=== PATIENT | male | born 1940 | race Hispanic/Latino ===

== ENCOUNTER 2017-10-03 00:08 | Observation (INO) | payer MEDICARE, BC ==
[2017-10-03] MEDS ORDERED: Nitroglycerin 2% Ointment Foilpak UD TOP STA (01:32)
[2017-10-03 01:37] LABS: BASO % 0.7 % (0.0-2.0); EOS # 0.1 K/uL (0.0-0.7); EOS % 1.9 % (0.0-4.0); HEMOGLOBIN 14.4 g/dL (12.0-18.0); LYMPH # 1.5 K/uL (1.0-4.3); LYMPH % 21.9 % (20.0-40.0); MEAN CELL VOLUME 87.8 fl (80.0-94.0); MEAN CORPUSCULAR HEMOGLOBIN 29.9 pg (27.0-31.0); MEAN CORPUSCULAR HGB CONC 34.1 g/dL (33.0-37.0); MEAN PLATELET VOLUME 9.2 fl (7.2-11.7); MONO # 0.5 K/uL (0.0-0.8); MONO % 6.8 % (0.0-10.0); NEUT # 4.6 K/uL (1.8-7.0); NEUT % 68.7 % (50.0-75.0); NRBC % 0.1 % (0.0-0.0); RBC 4.79 Mil/uL (4.40-5.90); RED CELL DISTRIBUTION WIDTH 14.3 % (11.5-14.5); WHITE BLOOD COUNT 6.7 K/uL (4.8-10.8)
[2017-10-03 01:42] LABS: BLOOD UREA NITROGEN 25 mg/dl (9-20); CALCIUM 9.2 mg/dL (8.4-10.2); GFR AFRICAN-AMERICAN > 60; GFR NON-AFRICAN AMERICAN > 60
[2017-10-03 01:52] LABS: PROTHROMBIN TIME 11.6 Seconds (9.8-13.1)
[2017-10-03 01:53] LABS: B-TYPE NATRIURETIC PEPTIDE 507 pg/ml (0-900)
--- NOTE | 2017-10-03 01:56 | ED PDOC ---
HPI: Chest Pain Time Seen by Provider: 10/03/17 00:45 Chief Complaint (Nursing): Chest Pain Chief Complaint (Provider): Chest Pain History Per: Patient History/Exam Limitations: no limitations Onset/Duration Of Symptoms: Hrs (x2), Sudden Onset Current Symptoms Are (Timing): Gone Now Associated Symptoms: denies: Nausea, Dyspnea, Diaphoresis Nitro Therapy Administered: 1, Per ED Additional Complaint(s): 76 year old male presents to ED with complaints of acute onset chest pain and has a past medical history of CAD, dyslipidemia, HTN, and CABG. Patient notes chest pain occurred x2 hours ago and resolved within seconds. Patient is asymptomatic upon ED arrival. (-) nausea, vomiting, diaphoresis, or SOB. PCP: Dr Parks - Risk Factors PE Risk Factors: Neg: Active Cancer, Previous DVT, Previous PE TAD Risk Factors: Pos: Hypertension Past Medical History Reviewed: Historical Data, Nursing Documentation, Vital Signs Vital Signs: Last Vital Signs Temp 98.6 F 10/03/17 13:52 Pulse 62 10/03/17 13:52 Resp 18 10/03/17 13:52 BP 138/94 H 10/03/17 13:52 Pulse Ox 98 10/03/17 13:52 - Medical History PMH: CAD, HTN, Hypercholesterolemia - Surgical History Surgical History: CABG (2008) - Family History Family History: States: Unknown Family Hx - Social History Current smoker - smoking cessation education provided: No Ex-Smoker (has not smoked in the last 12 months): No Alcohol: None Drugs: Denies - Home Medications Home Medications: Ambulatory Orders Medication Instructions Recorded Aspirin [Lo-Dose Aspirin EC] 81 mg PO DAILY 10/03/17 Atorvastatin [Lipitor] 40 mg PO DAILY 10/03/17 Carvedilol [Coreg] 6.25 mg PO BID 10/03/17 Furosemide [Lasix] 20 mg PO DAILY 10/03/17 Lisinopril [Zestril] 10 mg PO DAILY 10/03/17 - Allergies Allergies/Adverse Reactions: Allergies Allergy/AdvReac Type Severity Reaction Status Date / Time prochlorperazine Allergy VOMITING Verified 10/03/17 00:18 [From Compazine] PENNY Risk Score for UA/NSTEMI - PENNY Risk Score Age > 64: YES 3 or more CAD Risk Factors: YES Known CAD (Stenosis greater than 50%): YES PENNY Score: 3 Risk %: 13% Curb-65 Severity Score - CURB-65 Severity Score Confusion: No Respiratory Rate greater than/equal to 30: No Systolic BP <90 or Diastolic BP less than/equal 60mmHg: Yes Age >64: Yes Curb-65 Score: 2 Percentage 30-day mortality: 6.8% Wells Criteria for PE - Wells Criteria for Pulmonary Embolism Clinical Signs and Symptoms of DVT: No P.E is #1 Diagnosis, or Equally Likely: No Heart Rate >100: No Immobilization at least 3 days;Surgery previous 4 weeks: No Previous, objectively diagnosed PE or DVT: No Hemoptysis: No Malignancy w/treatment within 6 months, or palliative: No Total Score: 0 Review of Systems ROS Statement: Except As Marked, All Systems Reviewed And Found Negative Constitutional: Negative for: Sweats Cardiovascular: Positive for: Chest Pain (resolved) Respiratory: Negative for: Shortness of Breath Gastrointestinal: Negative for: Nausea, Vomiting Physical Exam - Reviewed Nursing Documentation Reviewed: Yes Vital Signs Reviewed: Yes - Physical Exam Appears: Positive for: Non-toxic, No Acute Distress Skin: Positive for: Normal Color, Warm, Dry Eye Exam: Positive for: Normal appearance Neck: Positive for: Normal Cardiovascular/Chest: Positive for: Regular Rate, Rhythm. Negative for: Murmur Respiratory: Positive for: Normal Breath Sounds. Negative for: Respiratory Distress Gastrointestinal/Abdominal: Positive for: Soft. Negative for: Tenderness Back: Positive for: Normal Inspection Extremity: Positive for: Normal ROM. Negative for: Deformity Neurologic/Psych: Positive for: Alert, Oriented. Negative for: Motor/Sensory Deficits - Laboratory Results Result Diagrams: 10/03/17 10:00 10/03/17 10:00 - ECG O2 Sat by Pulse Oximetry: 93 (RA) Pulse Ox Interpretation: Abnormal Medical Decision Making Medical Decision Makin Initial impression: chest pain in setting of CAD Initial plan: * EKG * Labs * Trop I * PTT/PT * CXR 0118 * OBS TELE ADMISSION (Dr. Howell) 0132 * ASA 324mg PO * Nitroglycerin 2% 1 ea TOP * Re-eval Labs reviewed show no clinically significant abnormalities. Patient will be hospitalized for further observation DX Chest Pain Fair Scribe Attestation: Documented by Irlanda Olivares acting as a scribe for Walt Ibrahim MD. MD Scribe Attestation: All medical record entries made by the Annie were at my direction and personally dictated by me. I have reviewed the chart and agree that the record accurately reflects my personal performance of the history, physical exam, medical decision making, and the department course for this patient. I have also personally directed, reviewed, and agree with the discharge instructions and disposition. Disposition - Clinical Impression Clinical Impression: Chest pain - Disposition Disposition Time: 01:00 Condition: FAIR - Pt Status Changed To: Hospital Disposition Of: Observation
[2017-10-03] MEDS ORDERED: Nitroglycerin 2% Ointment Foilpak UD TOP ONE ×2 (03:41→03:46)
[2017-10-03 08:09] VITALS: TEMP 98.6
[2017-10-03] MEDS ORDERED: Potassium Chloride 20 mEq ER Tab PO ONE (08:32)
--- NOTE | 2017-10-03 09:26 | RAD ---
HISTORY: chest pain COMPARISON: No prior. FINDINGS: LUNGS: No active pulmonary disease. PLEURA: Eventration of the right hemidiaphragm. No significant pleural effusion identified, no pneumothorax apparent. CARDIOVASCULAR: Prior sternotomy with sternal wires and surgical clips in place. Atherosclerotic aortic calcifications. Cardiomediastinal silhouette enlarged. OSSEOUS STRUCTURES: Degenerative changes. VISUALIZED UPPER ABDOMEN: Normal. OTHER FINDINGS: None. IMPRESSION: No active disease.
[2017-10-03 10:32] LABS: BASO % 0.7 % (0.0-2.0); EOS # 0.1 K/uL (0.0-0.7); EOS % 1.8 % (0.0-4.0); HEMOGLOBIN 15.2 g/dL (12.0-18.0); LYMPH # 0.9 K/uL (1.0-4.3); LYMPH % 18.3 % (20.0-40.0); MEAN CELL VOLUME 88.4 fl (80.0-94.0); MEAN CORPUSCULAR HEMOGLOBIN 29.6 pg (27.0-31.0); MEAN CORPUSCULAR HGB CONC 33.5 g/dL (33.0-37.0); MEAN PLATELET VOLUME 9.2 fl (7.2-11.7); MONO # 0.3 K/uL (0.0-0.8); MONO % 5.8 % (0.0-10.0); NEUT # 3.8 K/uL (1.8-7.0); NEUT % 73.4 % (50.0-75.0); NRBC % 0.3 % (0.0-0.0); RBC 5.14 Mil/uL (4.40-5.90); RED CELL DISTRIBUTION WIDTH 14.6 % (11.5-14.5); WHITE BLOOD COUNT 5.2 K/uL (4.8-10.8)
[2017-10-03 10:41] LABS: BLOOD UREA NITROGEN 24 mg/dl (9-20); CALCIUM 9.3 mg/dL (8.4-10.2); GFR AFRICAN-AMERICAN > 60; GFR NON-AFRICAN AMERICAN > 60
--- NOTE | 2017-10-03 12:26 | CP.PCM.HP ---
History of Present Illness - History of Present Illness History of Present Illness: 76 y/o M with PMhx of CAD, CABG, HTN presented to ED c/o CP. At the time of arrival CP was already resolved. Patient was admitted for CP to R/O ACS. Denies SOB, palpitations, headache or paresthesias. As per patient he was being compliant with meds and his meds are managed by his daughter which is a physician in [place]. Present on Admission - Present on Admission Any Indicators Present on Admission: Yes Review of Systems - Review of Systems All systems: reviewed and no additional remarkable complaints except - Cardiovascular Cardiovascular: Chest Pain Past Patient History - Past Social History Alcohol: None Drugs: Denies - CARDIAC Hx Hypercholesterolemia: Yes Hx Hypertension: Yes - PSYCHIATRIC Hx Substance Use: No - SURGICAL HISTORY Hx Coronary Artery Bypass Graft: Yes (2008) Meds Allergies/Adverse Reactions: Allergies Allergy/AdvReac Type Severity Reaction Status Date / Time prochlorperazine Allergy VOMITING Verified 10/03/17 00:18 [From Compazine] Physical Exam - Constitutional Appears: Non-toxic, No Acute Distress - Head Exam Head Exam: NORMAL INSPECTION - Eye Exam Eye Exam: EOMI, PERRL - ENT Exam ENT Exam: Mucous Membranes Moist - Respiratory Exam Respiratory Exam: Clear to Auscultation Bilateral, NORMAL BREATHING PATTERN. absent: Decreased Breath Sounds - Cardiovascular Exam Cardiovascular Exam: REGULAR RHYTHM, +S1, +S2. absent: Gallop - GI/Abdominal Exam GI & Abdominal Exam: Normal Bowel Sounds, Soft. absent: Tenderness - Neurological Exam Neurological exam: Alert, Normal Gait, Oriented x3 - Psychiatric Exam Psychiatric exam: Normal Affect, Normal Mood - Skin Skin Exam: Normal Color, Warm Results - Vital Signs Recent Vital Signs: Last Vital Signs Temp 98.6 F 10/03/17 08:08 Pulse 53 L 10/03/17 10:08 Resp 21 10/03/17 10:08 BP 133/79 10/03/17 10:08 Pulse Ox 97 10/03/17 10:08 - Labs Result Diagrams: 10/03/17 10:00 10/03/17 10:00 Labs: Laboratory Results - last 24 hr 10/03/17 10/03/17 10/03/17 01:26 01:26 01:26 WBC 6.7 RBC 4.79 Hgb 14.4 Hct 42.1 MCV 87.8 MCH 29.9 MCHC 34.1 RDW 14.3 Plt Count 176 MPV 9.2 Neut % (Auto) 68.7 Lymph % (Auto) 21.9 Lamar % (Auto) 6.8 Eos % (Auto) 1.9 Baso % (Auto) 0.7 Neut # (Auto) 4.6 Lymph # (Auto) 1.5 Lamar # (Auto) 0.5 Eos # (Auto) 0.1 Baso # (Auto) 0.0 PT 11.6 INR 1.0 APTT 30.0 Sodium 137 Potassium 3.2 L Chloride 97 L Carbon Dioxide 29 Anion Gap 14 BUN 25 H Creatinine 0.9 Est GFR ( Amer) > 60 Est GFR (Non-Af Amer) > 60 Random Glucose 168 H Calcium 9.2 Troponin I 0.0300 NT-Pro-B Natriuret Pep 507 10/03/17 10/03/17 10:00 10:00 WBC 5.2 RBC 5.14 Hgb 15.2 Hct 45.5 MCV 88.4 MCH 29.6 MCHC 33.5 RDW 14.6 H Plt Count 173 MPV 9.2 Neut % (Auto) 73.4 Lymph % (Auto) 18.3 L Lamar % (Auto) 5.8 Eos % (Auto) 1.8 Baso % (Auto) 0.7 Neut # (Auto) 3.8 Lymph # (Auto) 0.9 L Lamar # (Auto) 0.3 Eos # (Auto) 0.1 Baso # (Auto) 0.0 PT INR APTT Sodium 138 Potassium 3.8 Chloride 97 L Carbon Dioxide 31 H Anion Gap 14 BUN 24 H Creatinine 1.0 Est GFR ( Amer) > 60 Est GFR (Non-Af Amer) > 60 Random Glucose 163 H Calcium 9.3 Troponin I 0.0300 NT-Pro-B Natriuret Pep Assessment & Plan - Assessment and Plan (Free Text) Assessment: CP to rule out ACS CP Resolved VS stable Trops x1 normal EKG: Chronic ischemic changes Trops q8h repeat EKG Home meds reconciled Can be DC home if asymptomatic after 3rd trop negative
[2017-10-03 13:53] VITALS: BP 138/94; PULSE 62; RESP 18
--- NOTE | 2017-10-03 19:08 | CARD ---
APPROVED REPORT EKG Measurement Heart [id number] [place] 182P9 [id number] <Conclusion> Sinus bradycardia with premature atrial complexes Left ventricular hypertrophy with repolarization abnormality Inferior infarct, age undetermined Anterolateral infarct, age undetermined Abnormal ECG
[2017-10-04 03:49] VITALS: O2SAT 93
--- NOTE | 2017-10-04 23:50 | CARD ---
APPROVED REPORT EKG Measurement Heart [id number] <Conclusion> Sinus bradycardia with premature atrial complexes Inferior infarct, age undetermined Anteroseptal infarct, age undetermined T wave abnormality, consider lateral ischemia Abnormal ECG
== END 2017-10-03 15:31 | disposition home or self-care (01) ==
LOC: H.ER 00:08 → H.ERHOLD 01:18
PROVIDERS: ADMIT Family Medicine; ATTEND Family Medicine
DX: R07.9 Chest pain, unspecified (principal); I25.10 Atherosclerotic heart disease of native coronary artery without angina pectoris; I10 Essential (primary) hypertension; E78.5 Hyperlipidemia, unspecified; E78.00 Pure hypercholesterolemia, unspecified; Z95.1 Presence of aortocoronary bypass graft; Z79.82 Long term (current) use of aspirin
CPT/HCPCS: 71045; 80048; 83880; 84484; 85025; 85610; 85730; 93005; 99285; G0378

== ENCOUNTER 2018-02-18 06:27 | Emergency (ER) | payer OTHER, BC ==
[2018-02-18 07:06] VITALS: BP 137/65; TEMP 98.6; O2SAT 98
[2018-02-18] MEDS ORDERED: Iohexol 240 (50 ml) PO ONE (07:24)
[2018-02-18] MEDS ORDERED: Sodium Chloride 0.9% 1,000 ML IV STA (07:24)
[2018-02-18] MEDS ORDERED: Pantoprazole 40 MG in Sodium Chloride 0.9% 100 ML IVPB SCH (07:30)
--- NOTE | 2018-02-18 07:46 | ED PDOC ---
HPI: Abdomen Time Seen by Provider: 02/18/18 07:10 Chief Complaint (Nursing): Abdominal Pain Chief Complaint (Provider): Abdominal Pain and Black and Bloody Stools History Per: Patient History/Exam Limitations: no limitations Onset/Duration Of Symptoms: Days Outside of [place] travel?: No Current Symptoms Are (Timing): Still Present Severity: None Quality Of Discomfort: "Pain" Associated Symptoms: denies: Fever, Chills, Vomiting, Diarrhea, Chest Pain Exacerbating Factors: None Alleviating Factors: None Additional Complaint(s): 77 year old male with a past medical history of coronary artery disease, hypertension and hypercholesterolemia presents to the emergency department complaining of black and bloody stools associated with abdominal pain. Patient states that 3 months ago he had an episode of black stools which resolved spontaneously at that time but has been having intermittent episodes ever since. He reports that the most recent episodes of black stools occurred on Saturday and Saturday. Patient also notes some shortness of breath and weakness. Denies leg pain, dizziness, numbness/tingling, nausea, vomiting, diarrhea, chills. Chest pain yesterday, not today. PMD: Dr. Shreya Parks ([place]) Past Medical History Reviewed: Historical Data, Nursing Documentation, Vital Signs Vital Signs: Last Vital Signs Temp 98.6 F 02/18/18 07:00 Pulse 67 02/18/18 07:00 Resp 16 02/18/18 07:00 BP 137/65 02/18/18 07:00 Pulse Ox 98 02/18/18 07:54 - Medical History PMH: CAD, HTN, Hypercholesterolemia - Surgical History Surgical History: CABG (2008) - Family History Family History: States: Unknown Family Hx - Social History Current smoker - smoking cessation education provided: No Ex-Smoker (has not smoked in the last 12 months): No Alcohol: None Drugs: Denies - Home Medications Home Medications: Ambulatory Orders Medication Instructions Recorded Aspirin [Lo-Dose Aspirin EC] 81 mg PO DAILY 10/03/17 Atorvastatin [Lipitor] 40 mg PO DAILY 10/03/17 Carvedilol [Coreg] 6.25 mg PO BID 10/03/17 Furosemide [Lasix] 20 mg PO DAILY 10/03/17 Lisinopril [Zestril] 10 mg PO DAILY 10/03/17 - Allergies Allergies/Adverse Reactions: Allergies Allergy/AdvReac Type Severity Reaction Status Date / Time prochlorperazine Allergy VOMITING Verified 10/03/17 00:18 [From Compazine] Review of Systems ROS Statement: Except As Marked, All Systems Reviewed And Found Negative Constitutional: Positive for: Weakness. Negative for: Fever, Chills Cardiovascular: Positive for: Chest Pain Respiratory: Positive for: Shortness of Breath Gastrointestinal: Positive for: Abdominal Pain, Hematochezia, Other (Black and Bloody Stools). Negative for: Nausea, Vomiting, Diarrhea, Rectal Pain Neurological: Positive for: Weakness. Negative for: Numbness, Dizziness Physical Exam - Reviewed Nursing Documentation Reviewed: Yes Vital Signs Reviewed: Yes - Physical Exam Appears: Positive for: Non-toxic, No Acute Distress Head Exam: Positive for: ATRAUMATIC, NORMAL INSPECTION, NORMOCEPHALIC Skin: Positive for: Normal Color, Warm, Dry. Negative for: Rash Eye Exam: Positive for: Normal appearance, EOMI, PERRL. Negative for: Nystagmus ENT: Positive for: Normal ENT Inspection. Negative for: Nasal Congestion, Tonsillar Exudate, Tonsillar Swelling Neck: Positive for: Normal, Painless ROM, Supple Cardiovascular/Chest: Positive for: Regular Rate, Rhythm, Chest Non Tender. Negative for: Gallop, Murmur, Tachycardia Respiratory: Positive for: Normal Breath Sounds. Negative for: Rales, Rhonchi Gastrointestinal/Abdominal: Positive for: Bowel Sounds, Soft, Tenderness (mild diffuse tenderness). Negative for: Mass, Guarding, Rebound Rectal: Positive for: Normal Exam (No gross stool), Rectal Tone Is: (intact). Negative for: Hemorrhoids, Mass, Tenderness Extremity: Positive for: Normal ROM. 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 Negative for : Motor/Sensory Deficits - ECG O2 Sat by Pulse Oximetry: 98 (RA) Pulse Ox Interpretation: Normal - Progress ED Course And Treament: 806: Stable. AAOx3. Pt. refusing to stay in the hospital. Pope not want any work up done at this time. No labs, imaging, or admission. Will go AMA. He has capacity to make decisions. Aware of possible or decreased functioning from not getting evaluation and treatment for his chest pain, abd pain, gi bleeding. Medical Decision Making Medical Decision Makin Initial Impression: 77 year old male presenting with black bloody stools and abdominal pain Initial Plan: * ABO/RH Type * Type and Screen * CT ABD PELVIS PO & IV Contrast * EKG * CMP * Troponin * CBC * Partial Thrmboplastin * Prothrombin Time * CXR * NS 1000 ml IV 500 mls/hr * Iohexol 50 mL PO * Protonix inj 80 mg IVP * Occult Blood, Stool * Reevaluation Documented by Mallory Brito acting as a scribe for Calvin Chapman MD. All medical record entries made by the Scribe were at my direction and personally dictated by me. I have reviewed the chart and agree that the record accurately reflects my personal performance of the history, physical exam, medical decision making, and the department course for this patient. I have also personally directed, reviewed, and agree with the discharge instructions and disposition. Disposition - Clinical Impression Clinical Impression: GI bleed, Abdominal pain, Chest pain - Disposition Referrals: [facility] [Outside] Disposition: Against Medical Advice Disposition Time: 08:08 Condition: FAIR Additional Instructions: Return soon as possible for further evaluation and treatment. You are going against medical advice. You need blood work, treatment, catscans, and x-ray for evaluation; you are refusing. You are aware of possible or decreased functioning from chest pain, stomach bleeding, and abdominal pain. Instructions: Chest Pain, Acute Abdomen (Belly Pain), Gastrointestinal Bleeding Forms: Official Limited Virtual (Sami)
[2018-02-18 07:57] LABS: BASO # 0.1 K/uL (0.0-0.2); EOS # 0.2 K/uL (0.0-0.7); HEMOGLOBIN 15.4 g/dL (12.0-18.0); LYMPH # 1.2 K/uL (1.0-4.3); LYMPH % 20.8 % (20.0-40.0); MEAN CELL VOLUME 88.4 fl (80.0-94.0); MEAN CORPUSCULAR HEMOGLOBIN 29.2 pg (27.0-31.0); MEAN CORPUSCULAR HGB CONC 33.1 g/dL (33.0-37.0); MEAN PLATELET VOLUME 9.4 fl (7.2-11.7); MONO # 0.4 K/uL (0.0-0.8); MONO % 7.6 % (0.0-10.0); NEUT # 3.9 K/uL (1.8-7.0); NEUT % 66.6 % (50.0-75.0); RBC 5.28 Mil/uL (4.40-5.90); RED CELL DISTRIBUTION WIDTH 14.6 % (11.5-14.5); WHITE BLOOD COUNT 5.9 K/uL (4.8-10.8)
[2018-02-18 08:18] VITALS: PULSE 68; RESP 20
[2018-02-18 08:22] LABS: PARTIAL THROMBOPLASTIN TIME 34.1 Seconds (25.6-37.1); PROTHROMBIN TIME 10.5 Seconds (9.8-13.1)
[2018-02-18 08:52] LABS: ALB/GLOB RATIO 1.4 (1.0-2.1); ALT/SGPT 31 U/L (21-72); AST/SGOT 30 U/L (17-59); BLOOD UREA NITROGEN 24 mg/dl (9-20); CALCIUM 9.3 mg/dL (8.4-10.2); GFR AFRICAN-AMERICAN > 60; GFR NON-AFRICAN AMERICAN > 60
--- NOTE | 2018-02-18 09:34 | RAD ---
Date of service: 02/18/2018 HISTORY: dyspnea COMPARISON: 10/03/2017 FINDINGS: LUNGS: Mild bibasilar atelectasis/ scarring changes left greater than right PLEURA: No significant pleural effusion identified, no pneumothorax apparent. CARDIOVASCULAR: Cardiomegaly. Sternotomy wires and CABG clips again noted OSSEOUS STRUCTURES: No significant abnormalities. VISUALIZED UPPER ABDOMEN: Normal. OTHER FINDINGS: None. IMPRESSION: Mild bibasilar atelectasis/ scarring changes left greater than right
--- NOTE | 2018-02-19 12:12 | CARD ---
APPROVED REPORT Date of service: 02/18/2018 EKG Measurement Heart [id number] <Conclusion> Sinus rhythm with premature atrial complexes Possible Inferior infarct, age undetermined Anteroseptal infarct, age undetermined T wave abnormality, consider lateral ischemia Abnormal ECG
== END 2018-02-18 08:15 | disposition left against medical advice (07) ==
LOC: H.ER 06:27
DX: K92.2 Gastrointestinal hemorrhage, unspecified (principal); R10.9 Unspecified abdominal pain; R07.9 Chest pain, unspecified; I10 Essential (primary) hypertension; I25.10 Atherosclerotic heart disease of native coronary artery without angina pectoris; E78.00 Pure hypercholesterolemia, unspecified; Z79.82 Long term (current) use of aspirin; Z87.891 Personal history of nicotine dependence; Z95.1 Presence of aortocoronary bypass graft